=== PATIENT | female | born 1980 | race Caucasian/White ===

== ENCOUNTER 2018-08-13 17:38 | Inpatient (IN) | payer OTHER ==
[~2018-08-13] VITALS: Ht 170.2 cm; Wt 144.3 kg
[2018-08-13 22:40] VITALS: BP 146/74; PULSE 86; RESP 20
[2018-08-13 22:47] VITALS: Ht 170.2 cm; Wt 144.3 kg
[2018-08-13] MEDS ORDERED: DOCUSATE SODIUM 100 MG CAP PO PRN (23:00)
[2018-08-13] MEDS ORDERED: NACL 0.9% 3 ML SYG IV SCH (23:00)
[2018-08-13] MEDS ORDERED: ACETAMINOPHEN 325 MG TAB PO PRN (23:00)
[2018-08-13] MEDS ORDERED: ONDANSETRON 4 MG INJ IV PRN (23:00)
[2018-08-13] MEDS ORDERED: BISACODYL (EC) 5 MG TAB PO PRN (23:00)
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
[2018-08-13] MEDS: HYDROCODONE/APAP (5/325) TAB PO PRN (23:45)
[2018-08-13] MEDS: HEPARIN 5,000 UNIT/1 ML VIAL SC SCH (23:47)
[2018-08-14 02:55] VITALS: BP 127/68; PULSE 89; RESP 20
[2018-08-14] MEDS: HYDROCODONE/APAP (5/325) TAB PO PRN ×3 (06:01→20:36)
[2018-08-14] MEDS: HEPARIN 5,000 UNIT/1 ML VIAL SC SCH ×3 (06:04→21:46)
[2018-08-14] MEDS: morphine SULFATE/PF (2 MG/2 ML) SYG IV PRN ×2 (07:59→11:28)
[2018-08-14 08:58] VITALS: BP 130/58; PULSE 88; RESP 18
[2018-08-14 14:49] VITALS: BP 115/68; PULSE 87; RESP 18
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
[2018-08-14] MEDS ORDERED: morphine SULFATE/PF (2 MG/2 ML) SYG IV STA (16:25)
[2018-08-14] MEDS: KETOROLAC 15 MG INJ IV PRN (18:43)
[2018-08-14 20:05] VITALS: BP 131/90; PULSE 86; RESP 20
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
[2018-08-15 02:09] VITALS: BP 123/77; PULSE 92; RESP 18
[2018-08-15] MEDS: HYDROCODONE/APAP (5/325) TAB PO PRN ×4 (03:20→23:43)
[2018-08-15] MEDS: HEPARIN 5,000 UNIT/1 ML VIAL SC SCH ×3 (05:25→22:25)
[2018-08-15 07:00] VITALS: BP 120/67; PULSE 84; RESP 20
[2018-08-15] MEDS: KETOROLAC 15 MG INJ IV PRN ×3 (08:18→20:10)
[2018-08-15 14:12] VITALS: BP 128/70; PULSE 80; RESP 20
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
[2018-08-15 19:25] VITALS: BP 117/75; PULSE 76; RESP 18
[2018-08-15] MEDS ORDERED: ZOLPIDEM 5 MG TAB PO ONE (21:30)
[2018-08-15] MEDS: NYSTATIN 15 GM OINT TOP SCH (22:00)
[2018-08-16 01:15] VITALS: BP 118/57; PULSE 82; RESP 18
[2018-08-16] MEDS: KETOROLAC 15 MG INJ IV PRN ×2 (07:01→07:07)
[2018-08-16] MEDS: HEPARIN 5,000 UNIT/1 ML VIAL SC SCH ×3 (07:06→22:49)
[2018-08-16 08:44] VITALS: BP 127/71; PULSE 70; RESP 18
[2018-08-16] MEDS: HYDROCODONE/APAP (5/325) TAB PO PRN ×3 (09:19→22:45)
[2018-08-16] MEDS: NYSTATIN 15 GM OINT TOP SCH ×2 (09:21→21:42)
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
[2018-08-16 19:30] VITALS: BP 102/58; PULSE 77; RESP 18
[2018-08-16] MEDS: morphine (ER) 15 MG TAB PO SCH (20:50)
[2018-08-17 02:10] VITALS: BP 115/59; PULSE 74; RESP 18
[2018-08-17] MEDS: HYDROCODONE/APAP (5/325) TAB PO PRN ×3 (05:12→19:48)
[2018-08-17] MEDS: HEPARIN 5,000 UNIT/1 ML VIAL SC SCH ×3 (05:16→20:39)
[2018-08-17 07:26] VITALS: BP 119/78; PULSE 69; RESP 18
[2018-08-17] MEDS: morphine (ER) 15 MG TAB PO SCH ×2 (09:16→20:37)
[2018-08-17] MEDS: NYSTATIN 15 GM OINT TOP SCH ×2 (09:17→21:07)
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
[2018-08-17 14:44] VITALS: BP 100/58; PULSE 79
[2018-08-17 20:00] VITALS: BP 125/80; PULSE 85; RESP 18
[2018-08-17 20:18] VITALS: BP 123/76; PULSE 80; RESP 20
[2018-08-18 02:04] VITALS: BP 129/82; PULSE 96; RESP 18
[2018-08-18] MEDS: HYDROCODONE/APAP (5/325) TAB PO PRN ×3 (05:34→19:11)
[2018-08-18] MEDS: HEPARIN 5,000 UNIT/1 ML VIAL SC SCH ×2 (05:37→13:30)
[2018-08-18 07:53] VITALS: BP 100/56; PULSE 90; RESP 18
[2018-08-18] MEDS: NYSTATIN 15 GM OINT TOP SCH ×2 (09:00→21:18)
[2018-08-18] MEDS: morphine (ER) 15 MG TAB PO SCH ×2 (09:05→21:18)
[2018-08-18 14:19] VITALS: BP 116/65; PULSE 96; RESP 18
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
[2018-08-18 20:11] VITALS: BP 112/58; PULSE 111; RESP 18
[2018-08-19] MEDS: HYDROCODONE/APAP (5/325) TAB PO PRN ×4 (01:50→19:32)
[2018-08-19 02:06] VITALS: BP 115/57; PULSE 91; RESP 18
[2018-08-19 08:07] VITALS: BP 111/62; PULSE 88; RESP 19
[2018-08-19] MEDS: morphine (ER) 15 MG TAB PO SCH ×2 (09:01→20:05)
[2018-08-19] MEDS: NYSTATIN 15 GM OINT TOP SCH ×2 (09:02→20:06)
[2018-08-19] MEDS: ENOXAPARIN 40 MG/0.4 ML SYG SC SCH (09:10)
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
[2018-08-19 17:04] VITALS: BP 121/58; PULSE 92; RESP 20
[2018-08-19 19:22] VITALS: BP 106/60; PULSE 85; RESP 16
[2018-08-20 02:27] VITALS: BP 108/60; PULSE 85; RESP 16
[2018-08-20] MEDS: HYDROCODONE/APAP (5/325) TAB PO PRN ×3 (02:31→14:35)
[2018-08-20 07:50] VITALS: BP 101/62; PULSE 88; RESP 18
[2018-08-20] MEDS: morphine (ER) 15 MG TAB PO SCH (08:54)
[2018-08-20] MEDS: ENOXAPARIN 40 MG/0.4 ML SYG SC SCH (08:54)
[2018-08-20] MEDS: NYSTATIN 15 GM OINT TOP SCH ×2 (08:56→08:57)
[2018-08-20] MEDS ORDERED: ONDA4TAB8 PO (12:49)
[2018-08-20] MEDS ORDERED: MORP15TA3 PO (12:49)
[2018-08-20] MEDS ORDERED: HYDR-4011 PO (12:49)
--- NOTE | 2018-08-20 12:52 | PDOCDIS ---
Discharge Instructions CONDITION [id number] Patient Condition: Ixacr5l Good HOME CARE INSTRUCTIONS: [id number] Diet Instructions: [id number] Reduced Calorie ACTIVITY: [id number] Activity Restrictions: [id number] Slowly Increase Activity Rest between Activity Avoid heavy lifting [id number] Bathing Restrictions: [id number] Shower [id number] Activity Restrictions [id number] No weight bearing to LEFT LEG Comment: until cleared by surgeon FOLLOW UP/APPOINTMENTS Follow-up Plan Follow-up with your PCP in 1-2 weeks, follow-up with Ortho clinic as provided by [facility] ABRAHAM FIELDS Aug 20, 2018 12:52
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
[2018-08-20 15:07] VITALS: BP 178/85; PULSE 92; RESP 18
[2018-08-20 15:09] VITALS: BP 119/66; PULSE 80; RESP 17
== END 2018-08-20 17:55 | disposition short-term general hospital (02) | DRG 536 ==
LOC: MS1 22:24
PROVIDERS: ADMIT Internal Medicine; ATTEND Internal Medicine
DX: S32.402A Unspecified fracture of left acetabulum, initial encounter for closed fracture (principal); S32.509A Unspecified fracture of unspecified pubis, initial encounter for closed fracture; Z68.42 Body mass index [BMI] 45.0-49.9, adult; E66.01 Morbid (severe) obesity due to excess calories; Z71.3 Dietary counseling and surveillance
CPT/HCPCS: 74176; 80053; 80061; 83036; 83735; 84443; 84703; 85025; 90686; 97110; 97161; 97530; J1644; J1650; J1885; J2274